=== PATIENT | female | born 1950 ===

== ENCOUNTER 2024-05-08 13:28 | Outpatient (AMB) | payer MEDICAID, SELFPAY ==
[2024-05-08 13:42] VITALS: BP 143/81; PULSE 64; RESP 18; TEMP 36.1; O2SAT 95; BMI 30.1
--- NOTE | 2024-05-08 13:42 | RHCORTHONT_ITS ---
Vital signs 05/08/24 13:42 Height 1.63 m Height Method Stated Weight 79.549 kg Weight Measurement Method Standing Scale BMI 30.1 BP 143/81 H Blood Pressure Source Automatic Cuff Blood Pressure Location Right Upper Arm Position Sitting Respiration 18 Pulse 64 Pulse Source Monitor Temp 96.9 F Temp Source Temporal Artery Scan Pulse Oximetry (%) 95 Oxygen Delivery Method Room Air Med/Allergies Allergies & Medications Allergies No Known Drug Allergies Allergy (Verified 05/08/24 13:43) Medication Reconciliation diltiazem HCl 30 mg tablet 30 mg PO TID 05/08/24 [History Confirmed 05/08/24] hydroxyurea 500 mg capsule 500 mg PO BID 05/08/24 [History Confirmed 05/08/24] lamotrigine 25 mg tablet 25 mg PO QDAY 05/08/24 [History Confirmed 05/08/24] losartan 25 mg tablet 25 mg PO QDAY 05/08/24 [History Confirmed 05/08/24] meloxicam 7.5 mg tablet 7.5 mg PO QDAY #45 tabs 05/08/24 [Rx] rosuvastatin 10 mg tablet 10 mg PO QDAY 05/08/24 [History Confirmed 05/08/24] Exam Exam Patient is in no acute distress and is cooperative with the examination today. Breathing is nonlabored. Patient has a normal mood and affect. Bilateral extremities were evaluated and demonstrates sensation intact to light touch. Palpable pedal pulses are present. No significant edema is present. Bilateral hips were examined. The patient has no pain with log roll of the hips. Internal rotation to 30 degrees and external rotation to 30 degrees is painless. Negative FADIR. Left knee was examined today. The left knee is in reasonable alignment. Range of motion from 0-120 degrees. Knee is stable to varus and valgus as well as AP translation with <5mm. Patient has a negative McMurrays. There is no pain with patellofemoral compression and no crepitus noted. The knee is nontender to palpation. The right knee was also examined. The right knee is in [varus] alignment. Range of motion from [0-115] degrees. Knee is stable to varus and valgus as well as AP translation with <5mm. Patient has a [negative] McMurrays. There is [no] pain with patellofemoral compression and [no] crepitus noted. The knee is [tender] to palpation [medially]. Assessment and Plan Problem List (1) Arthritis of knee, right: Status: Acute Plan: Patient is a pleasant 73-year-old female with right knee pain and right knee arthritis. We discussed nonoperative and operative options. I would first like to see her x-rays. She has an MRI demonstrates arthritis as well as degenerative meniscal tears. We discussed this is typically treated nonoperatively. We will start her on an anti-inflammatory. We can probably give her an injection at the next visit depending on what the x-rays show Advanced Care Planning Discussion Advance care planning discussed with:: patient and child Office Procedures GNS Level of Care Nursing/Assessment Patient Status: Initial/New Patient Nursing Assessment/Reassesment: Medication Reconciliation, Update PMH in EMR and Vital Signs Coordination of Care: Complex Care and Chronic Disease 1-5, Education Complex Pt/Fam, Consent,records obtained, informed consent, Lab and Imaging orders, Results/Orders obtained and Staff clarify orders Special Needs: Language special needs New Patient Charge New Patient Point Assignment: 1109 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 ([id number]) MA Intake Visit Data Collection New Patient or Established: New Patient (never been to [facility] [place]) Reason for Visit:: RIGHT KNEE PAIN Seen by Clinical Staff ONLY (RN/MA): No Verbal consent obtained for Telemed visit?: No Home Care Aide Required: Yes PCP or OBGYN visit in last 3 months: Yes Hx Now: No Do You Feel Safe at Home: Yes Authorities Contacted: N/A Questionairres Past Medical History Past Medical History Have you ever been diagnosed with any of the following: Cardiology Problems Hypercholesterolemia: Yes Hypertension: Yes Respiratory Problems Smoking: No Smoking Exposure: No Subjective Visit Visit for: new patient and knee Immunization / Flu Flu Vaccine in the Last 12 Months: Yes Flu Vaccine Exclusion Criteria: Already Received History of Present Illness Chief complaint: KNEE PAIN Date of injury / onset of symptoms: WHILE BACK Patient is a pleasant 73-year-old female with right knee pain. This been ongoing for several years but worsened in the last 3 months. She has had ibup rofen and no injections. The pain really started after a fall 3 months ago. Personal History Occupation: UNEMPLOYED Red flag PMH: none BMI Counceling provided: Yes Pain Pain level (0-10): 7 Pain duration: ALL DAY Pain location: inside (medial) Pain quality: sharp, dull, aching and burning Pain timing: increases with activity Associated signs & symptoms: numbness, weakness and stiffness Ambulatory data Ambulatory device: none Treatments Improvement with previous injections: No Improvement with PT: No Improvement with NSAIDS: n/a Review of Systems Review of Systems: All systems negative unless otherwise noted in HPI.
== END 2024-05-08 14:05 | disposition home or self-care (01) ==
LOC: HODSRG 13:28
PROVIDERS: PCP Licensed Practical Nurse; Referring Provider Licensed Practical Nurse; Supervising Provider Orthopaedic Surgery Adult Reconstructive Orthopaedic Surgery; Visit Provider Orthopaedic Surgery Adult Reconstructive Orthopaedic Surgery
DX: M17.11 Unilateral primary osteoarthritis, right knee (principal); M25.561 Pain in right knee; I10 Essential (primary) hypertension; E78.00 Pure hypercholesterolemia, unspecified
CPT/HCPCS: 99203; G0463

== ENCOUNTER 2024-05-26 11:01 | Outpatient (AMB) | payer MEDICAID, SELFPAY ==
--- NOTE | 2024-05-26 10:58 | PD.ORTHTELE ---
Med/Allergies Allergies & Medications Allergies No Known Drug Allergies Allergy (Verified 05/26/24 11:01) Medication Reconciliation diltiazem HCl 30 mg tablet 30 mg PO TID 05/08/24 [History Confirmed 05/26/24] hydroxyurea 500 mg capsule 500 mg PO BID 05/08/24 [History Confirmed 05/26/24] lamotrigine 25 mg tablet 25 mg PO QDAY 05/08/24 [History Confirmed 05/26/24] losartan 25 mg tablet 25 mg PO QDAY 05/08/24 [History Confirmed 05/26/24] meloxicam 7.5 mg tablet 7.5 mg PO QDAY #45 tabs 05/08/24 [Rx Confirmed 05/26/24] rosuvastatin 10 mg tablet 10 mg PO QDAY 05/08/24 [History Confirmed 05/26/24] Subjective Visit Visit for: follow up visit, knee and x-rays Immunization / Flu Flu Vaccine in the Last 12 Months: No Flu Vaccine Exclusion Criteria: No Exclusion Criteria History of Present Illness Chief complaint: Knee pain Patient is a pleasant 73-year-old female with right knee pain. This has been ongoing for several years but worsened in the last 3 months. She has had ibuprofen and no injections. The pain really started after a fall 3 months ago. Pain Pain level (0-10): 3 Pain duration: ON AND OFF Pain location: inside (medial), outside (lateral), anterior and posterior Pain quality: sharp, aching and burning Pain timing: night, increases with activity and stairs Associated signs & symptoms: none Ambulatory data Ambulatory device: none Treatments Improvement with previous injections: No Improvement with PT: No Improvement with NSAIDS: no Review of Systems Review of Systems: All systems negative unless otherwise noted in HPI. Assessment and Plan Problem List (1) Arthritis of knee, right: Status: Acute Plan: Patient is a pleasant 73-year-old female with right knee pain and right knee arthritis. We discussed nonoperative and operative options. She has an MRI demonstrates arthritis as well as degenerative meniscal tears. We discussed this is typically treated nonoperatively. We will start her on an anti-inflammatory. We reviewed x-ray results and she has [id number] arthritis medially. We discussed nonoperative options including injections at the next visit. They would like a cortisone injection. We can see them at the next visit for a cortisone injection Advanced Care Planning Discussion Advance care planning discussed with:: patient Office Procedures GNS Level of Care Nursing/Assessment Patient Status: Established Patient Nursing Assessment/Reassesment: Medication Reconciliation, Update PMH in EMR and Vital Signs Coordination of Care: Complex Care and Chronic Disease 1-5, Education Complex Pt/Fam, Consent,records obtained, informed consent, Results/Orders obtained and Staff clarify orders Established Patient Charge Established Patient Point Assignment: 95 Telehealth Telemed Phone/Video with patient at home & Dr,PA,[employer] AS[employer]BLER: Yes
== END 2024-05-26 11:05 | disposition home or self-care (01) ==
LOC: HODSRG 11:01
PROVIDERS: PCP Licensed Practical Nurse; Referring Provider Licensed Practical Nurse; Supervising Provider Orthopaedic Surgery Adult Reconstructive Orthopaedic Surgery; Visit Provider Orthopaedic Surgery Adult Reconstructive Orthopaedic Surgery
DX: M17.11 Unilateral primary osteoarthritis, right knee (principal); M25.561 Pain in right knee
CPT/HCPCS: 99212; G0463

== ENCOUNTER 2024-06-09 12:53 | Outpatient (AMB) | payer MEDICAID, SELFPAY ==
--- NOTE | 2024-06-09 13:06 | PD.ORTHCLVIS ---
Vital signs 06/09/24 13:07 Height 1.63 m Height Method Stated Weight 78.471 kg Weight Measurement Method Standing Scale BMI 29.5 BP 141/75 H Blood Pressure Source Automatic Cuff Blood Pressure Location Right Upper Arm Position Sitting Respiration 18 Pulse 59 L Pulse Source Monitor Temp 96.9 F Temp Source Temporal Artery Scan Pulse Oximetry (%) 97 Oxygen Delivery Method Room Air Med/Allergies Allergies & Medications Allergies No Known Drug Allergies Allergy (Verified 06/09/24 13:08) Medication Reconciliation diltiazem HCl 30 mg tablet 30 mg PO TID 05/08/24 [History Confirmed 06/09/24] hydroxyurea 500 mg capsule 500 mg PO BID 05/08/24 [History Confirmed 06/09/24] lamotrigine 25 mg tablet 25 mg PO QDAY 05/08/24 [History Confirmed 06/09/24] losartan 25 mg tablet 25 mg PO QDAY 05/08/24 [History Confirmed 06/09/24] meloxicam 7.5 mg tablet 7.5 mg PO QDAY #45 tabs 05/08/24 [Rx Confirmed 06/09/24] rosuvastatin 10 mg tablet 10 mg PO QDAY 05/08/24 [History Confirmed 06/09/24] Exam Exam Patient is in no acute distress and is cooperative with the examination today. Breathing is nonlabored. Patient has a normal mood and affect. Bilateral extremities were evaluated and demonstrates sensation intact to light touch. Palpable pedal pulses are present. No significant edema is present. Bilateral hips were examined. The patient has no pain with log roll of the hips. Internal rotation to 30 degrees and external rotation to 30 degrees is painless. Negative FADIR. Left knee was examined today. The left knee is in reasonable alignment. Range of motion from 0-120 degrees. Knee is stable to varus and valgus as well as AP translation with <5mm. Patient has a negative McMurrays. There is no pain with patellofemoral compression and no crepitus noted. The knee is nontender to palpation. The right knee was also examined. The right knee is in [varus] alignment. Range of motion from [0-115] degrees. Knee is stable to varus and valgus as well as AP translation with <5mm. Patient has a [negative] McMurrays. There is [no] pain with patellofemoral compression and [no] crepitus noted. The knee is [tender] to palpation [medially]. left knee demonstrates significant knee osteoarthritis Assessment and Plan Problem List (1) Arthritis of knee, right: Status: Acute Plan: Patient is a pleasant 73-year-old female with right knee pain and right knee arthritis. We discussed nonoperative and operative options. She has an MRI demonstrates arthritis as well as degenerative meniscal tears. We discussed this is typically treated nonoperatively. We will start her on an anti-inflammatory. We reviewed x-ray results and she has garv-ky-gxqe arthritis medially. Recommend knee cortisone injection as patient would like to proceed with conservative treatment at this time. The risks and benefits of the procedure were reviewed with the patient and patient gave verbal consent to continue with the procedure. Procedure: performed by Dr. Londono Using sterile technique the left knee was thoroughly prepped with alcohol, and approximately 1 cc of Kenalog 40 mg/mL and 4 cc of 1% lidocaine was injected without resistance into the medial tibial femoral joint space. The patient tolerated the procedure. (2) Arthritis of knee, left: Status: Acute Advanced Care Planning Discussion Advance care planning discussed with:: patient Office Procedures GNS Level of Care Nursing/Assessment Patient Status: Established Patient Nursing Assessment/Reassesment: Medication Reconciliation, Update PMH in EMR and Vital Signs Coordination of Care: Complex Care and Chronic Disease 1-5, Education Complex Pt/Fam, Consent,records obtained, informed consent, Results/Orders obtained and Staff clarify orders Established Patient Charge Established Patient Point Assignment: 95 Established Patient Point Charge: EP Level 3 (80-115) (KNEE INJECTION) Surgical Proc/IM SQ injection Major Surgical Procedure: Yes Medication Given Medication Given Medication Given: Yes Documented Dose Given: 4 Route: Infiitration Medication Given Medication Given Medication Given: Yes Documented Dose Given: 1 Office Meds Xylocaine 10 mg/mL (1 %) injection solution Performing Provider: Americo Londono MD Performing Location: [facility] Administered by: Americo Londono MD on 06/09/24 13:21 Dose Route Admin Location Dispensed Lot Number Expiration Date [facility] Offc Spec 20 mL Infiltration 20 mL [id number] [facility] triamcinolone acetonide 40 mg/mL suspension for injection Performing Provider: Americo Londono MD Performing Location: [facility] Administered by: Americo Londono MD on 06/09/24 13:21 Dose Route Admin Location Dispensed Lot Number Expiration Date [facility] Offc Spec 40 mg intra-articular LEFT KNEE 1 mL [id number] 09/17/25 1017-3385-94 [employer] [place] Intake Visit Data Collection New Patient or Established: Established Patient (seen at [facility] within 3 years) Reason for Visit:: KNEE INJECTIONS Seen by Clinical Staff ONLY (RN/MA): No Verbal consent obtained for Telemed visit?: No Vp Legal Affairs Required: Yes PCP or OBGYN visit in last 3 months: Yes Hx Now: No Do You Feel Safe at Home: Yes Authorities Contacted: N/A Questionairres Past Medical History Past Medical History Have you ever been diagnosed with any of the following: Cardiology Problems Hypercholesterolemia: Yes Hypertension: Yes Respiratory Problems Smoking: No Smoking Exposure: No Subjective Visit Visit for: follow up visit, knee and injections Immunization / Flu Flu Vaccine in the Last 12 Months: No Flu Vaccine Exclusion Criteria: No Exclusion Criteria History of Present Illness Chief complaint: F/U KNEE INJECTIONS Date of injury / onset of symptoms: WHILE BACK Patient is a pleasant 73-year-old female with left knee pain. This been ongoing for several years but worsened in the last 3 months. She has had ibuprofen and no injections. The pain really started after a fall 3 months ago. Personal History Occupation: UNEMPLOYED Red flag PMH: none BMI Counceling provided: Yes Pain Pain level (0-10): 5 Pain duration: ALL DAY Pain location: inside (medial), outside (lateral) and anterior Pain quality: sharp, dull and aching Pain timing: increases with activity Associated signs & symptoms: numbness, weakness and stiffness Ambulatory data Ambulatory device: none Treatments Improvement with previous injections: No Improvement with PT: No Improvement with NSAIDS: n/a Review of Systems Review of Systems: All systems negative unless otherwise noted in HPI.
[2024-06-09 13:07] VITALS: BP 141/75; PULSE 59; RESP 18; TEMP 36.1; O2SAT 97; BMI 29.5
== END 2024-06-09 13:17 | disposition home or self-care (01) ==
PROVIDERS: PCP Licensed Practical Nurse; Referring Provider Licensed Practical Nurse; Supervising Provider Orthopaedic Surgery Adult Reconstructive Orthopaedic Surgery; Visit Provider Orthopaedic Surgery Adult Reconstructive Orthopaedic Surgery
DX: M17.0 Bilateral primary osteoarthritis of knee (principal); M25.561 Pain in right knee; I10 Essential (primary) hypertension; E78.00 Pure hypercholesterolemia, unspecified
CPT/HCPCS: 20610; 99213; J3301; J3490; G0463

== ENCOUNTER 2025-04-13 14:10 | Outpatient (AMB) | payer MEDICAID, SELFPAY ==
--- NOTE | 2025-04-13 14:23 | PD.ORTHCLVIS ---
Vital signs 04/13/25 14:24 Height 1.63 m Height Method Stated Weight 74.984 kg Weight Measurement Method Standing Scale BMI 28.2 BP 129/74 Blood Pressure Source Automatic Cuff Blood Pressure Location Left Upper Arm Position Sitting Respiration 19 Pulse 59 L Pulse Source Monitor Temp 97.3 F Temp Source Temporal Artery Scan Pulse Oximetry (%) 97 Oxygen Delivery Method Room Air Med/Allergies Allergies & Medications Allergies No Known Drug Allergies Allergy (Verified 04/13/25 14:24) Medication Reconciliation diltiazem HCl 30 mg tablet 30 mg PO TID 05/08/24 [History Confirmed 04/13/25] hydroxyurea 500 mg capsule 500 mg PO BID 05/08/24 [History Confirmed 04/13/25] lamotrigine 25 mg tablet 25 mg PO QDAY 05/08/24 [History Confirmed 04/13/25] losartan 25 mg tablet 25 mg PO QDAY 05/08/24 [History Confirmed 04/13/25] meloxicam 7.5 mg tablet 7.5 mg PO QDAY #45 tabs 05/08/24 [Rx Confirmed 04/13/25] rosuvastatin 10 mg tablet 10 mg PO QDAY 05/08/24 [History Confirmed 04/13/25] Exam Exam Patient is in no acute distress and is cooperative with the examination today. Breathing is nonlabored. Patient has a normal mood and affect. Bilateral extremities were evaluated and demonstrates sensation intact to light touch. Palpable pedal pulses are present. No significant edema is present. Bilateral hips were examined. The patient has no pain with log roll of the hips. Internal rotation to 30 degrees and external rotation to 30 degrees is painless. Negative FADIR. Left knee was examined today. The left knee is in reasonable alignment. Range of motion from 0-120 degrees. Knee is stable to varus and valgus as well as AP translation with <5mm. Patient has a negative McMurrays. There is no pain with patellofemoral compression and no crepitus noted. The knee is nontender to palpation. The right knee was also examined. The right knee is in [varus] alignment. Range of motion from [0-115] degrees. Knee is stable to varus and valgus as well as AP translation with <5mm. Patient has a [negative] McMurrays. There is [no] pain with patellofemoral compression and [no] crepitus noted. The knee is [tender] to palpation [medially]. left knee demonstrates significant knee osteoarthritis Assessment and Plan Problem List (1) Arthritis of knee, right: Status: Acute Plan: Patient is a pleasant 73-year-old female with right knee pain and right knee arthritis. We discussed nonoperative and operative options. She has an MRI demonstrates arthritis as well as degenerative meniscal tears. We discussed this is typically treated nonoperatively. We will start her on an anti-inflammatory. We reviewed x-ray results and she has mnbi-ry-smew arthritis medially. Recommend knee cortisone injection as patient would like to proceed with conservative treatment at this time. The risks and benefits of the procedure were reviewed with the patient and patient gave verbal consent to continue with the procedure. Procedure: performed by Dr. Londono Using sterile technique the Right knee was thoroughly prepped with alcohol, and approximately 1 cc of Depo-Medrol 80mg/mL and 4 cc of 0.2% ropivacaine was injected without resistance into the medial tibial femoral joint space. The patient tolerated the procedure. Recommend knee cortisone injection as patient would like to proceed with conservative treatment at this time. The risks and benefits of the procedure were reviewed with the patient and patient gave verbal consent to continue with the procedure. Procedure: performed by Dr. Londono Using sterile technique the leftknee was thoroughly prepped with alcohol, and approximately 1 cc of Depo-Medrol 80mg/mL and 4 cc of 0.2% ropivacaine was injected without resistance into the medial tibial femoral joint space. The patient tolerated the procedure. (2) Arthritis of knee, left: Status: Acute Advanced Care Planning Discussion Advance care planning discussed with:: patient Office Procedures GNS Level of Care Nursing/Assessment Patient Status: Established Patient Nursing Assessment/Reassesment: Medication Reconciliation, Update PMH in EMR and Vital Signs Coordination of Care: Complex Care and Chronic Disease 1-5, Education Complex Pt/Fam, Consent,records obtained, informed consent, Results/Orders obtained and Staff clarify orders Established Patient Charge Established Patient Point Assignment: 95 Established Patient Point Charge: EP Level 3 (80-115) Surgical Proc/IM SQ injection Minor Surgical Procedure: Yes Medication Given Medication Given Medication Given: Yes Documented Dose Given: 2 Route: Infiitration Medication Given Medication Given Medication Given: Yes Documented Dose Given: 8 Route: Infiitration Office Meds methylprednisolone acetate 80 mg/mL suspension for injection Performing Provider: Americo Londono MD Performing Location: [facility] Administered by: Americo Londono MD on 04/13/25 15:06 Dose Route Admin Location Dispensed Lot Number Expiration Date Package [facility] [place] Shaker Washer 160 mg intra-articular KNEE 2 mL [id number] 12/17/26 [address]-1 [id number] [employer] ropivacaine (PF) 2 mg/mL (0.2 %) injection solution Performing Provider: Americo Londono MD Performing Location: [facility] Administered by: Americo Londono MD on 04/13/25 15:06 Dose Route Admin Location Dispensed Lot Number Expiration Date Package [employer] Shaker Washer 40 mL Infiltration KNEE 40 mL [id number] 06/19/27 24520-766-46 [id number] [facility] Intake Visit Data Collection New Patient or Established: Established Patient (seen at [facility] within 3 years) Reason for Visit:: KNEE INJECTIONS Seen by Clinical Staff ONLY (RN/MA): No Verbal consent obtained for Telemed visit?: No Liaison Officer Required: Yes PCP or OBGYN visit in last 3 months: Yes Hx Now: No Do You Feel Safe at Home: Yes Authorities Contacted: N/A Questionairres Past Medical History Past Medical History Have you ever been diagnosed with any of the following: Cardiology Problems Hypercholesterolemia: Yes Hypertension: Yes Respiratory Problems Smoking: No Smoking Exposure: No Subjective Visit Visit for: follow up visit, knee and injections Immunization / Flu Flu Vaccine in the Last 12 Months: No Flu Vaccine Exclusion Criteria: No Exclusion Criteria History of Present Illness Chief complaint: F/U KNEE INJECTIONS Date of injury / onset of symptoms: WHILE BACK Patient is a pleasant 73-year-old female with left knee pain. This been ongoing for several years but worsened in the last 3 months. She has had ibuprofen and 1 injection. The last injections have worked for over a year and she would like a few injections today Personal History Occupation: UNEMPLOYED Red flag PMH: none BMI Counceling provided: Yes Pain Pain level (0-10): 5 Pain duration: ALL DAY Pain location: inside (medial), outside (lateral) and anterior Pain quality: sharp, dull and aching Pain timing: increases with activity Associated signs & symptoms: numbness, weakness and stiffness Ambulatory data Ambulatory device: none Treatments Improvement with previous injections: No Improvement with PT: No Improvement with NSAIDS: n/a Review of Systems Review of Systems: All systems negative unless otherwise noted in HPI.
[2025-04-13 14:24] VITALS: BP 129/74; PULSE 59; RESP 19; TEMP 36.3; O2SAT 97; BMI 28.2
== END 2025-04-13 14:50 | disposition home or self-care (01) ==
LOC: HODSRG 14:10
PROVIDERS: PCP Licensed Practical Nurse; Referring Provider Licensed Practical Nurse; Supervising Provider Orthopaedic Surgery Adult Reconstructive Orthopaedic Surgery; Visit Provider Orthopaedic Surgery Adult Reconstructive Orthopaedic Surgery
DX: M17.0 Bilateral primary osteoarthritis of knee (principal); M25.562 Pain in left knee; M25.561 Pain in right knee; I10 Essential (primary) hypertension
CPT/HCPCS: 20610; 99213; J1010; J2795; G0463